=== PATIENT | female | born 1995 ===

== ENCOUNTER → 2020-11-01 | Outpatient (CLI) | payer OTHER | END | disposition home or self-care (01) | LOC: PRENATAL 08:00 | PROVIDERS: ATTEND Obstetrics & Gynecology Maternal & Fetal Medicine | DX: O35.0XX1 Maternal care for (suspected) central nervous system malformation in fetus, fetus 1 (principal); O35.3XX1 Maternal care for (suspected) damage to fetus from viral disease in mother, fetus 1; O98.512 Other viral diseases complicating pregnancy, second trimester; Z36.89 Encounter for other specified antenatal screening; Z3A.23 23 weeks gestation of pregnancy ==

== ENCOUNTER → 2020-12-13 | Outpatient (CLI) | payer OTHER | END | disposition home or self-care (01) | LOC: PRENATAL 16:00 | PROVIDERS: ATTEND Obstetrics & Gynecology Maternal & Fetal Medicine | DX: O26.843 Uterine size-date discrepancy, third trimester (principal); O35.3XX1 Maternal care for (suspected) damage to fetus from viral disease in mother, fetus 1; O98.513 Other viral diseases complicating pregnancy, third trimester; Z36.89 Encounter for other specified antenatal screening; Z3A.29 29 weeks gestation of pregnancy ==

== ENCOUNTER 2021-02-16 03:17 | Inpatient (IN) | payer OTHER ==
[~2021-02-16] VITALS: Ht 157.5 cm; Wt 3.6 kg
[2021-02-16] MEDS ORDERED: PRENATAL TABLE1 EAC1 PO (04:18)
== END 2021-02-18 16:32 | disposition home or self-care (01) | DRG 785 ==
LOC: LDR 03:17 → O/R 07:12 → OB/GYN 09:49
PROVIDERS: ADMIT Obstetrics & Gynecology; ATTEND Obstetrics & Gynecology
PROC: 0UB70ZZ Excision of Bilateral Fallopian Tubes, Open Approach (ICD-10-PCS; 2021-02-16)
PROC: 4A1HXFZ Monitoring of Products of Conception, Cardiac Rhythm, External Approach (ICD-10-PCS; 2021-02-16)
PROC: 10D00Z1 Extraction of Products of Conception, Low, Open Approach (ICD-10-PCS; principal; 2021-02-16 07:00)
DX: O65.5 Obstructed labor due to abnormality of maternal pelvic organs (principal); O34.211 Maternal care for low transverse scar from previous cesarean delivery; O75.82 Onset (spontaneous) of labor after 37 completed weeks of gestation but before 39 completed weeks gestation, with delivery by (planned) cesarean section; O42.02 Full-term premature rupture of membranes, onset of labor within 24 hours of rupture; O24.429 Gestational diabetes mellitus in childbirth, unspecified control; O99.824 Streptococcus B carrier state complicating childbirth; Z30.2 Encounter for sterilization; Z3A.38 38 weeks gestation of pregnancy; Z37.0 Single live birth; Z20.822 Contact with and (suspected) exposure to COVID-19